=== PATIENT | female | born 1960 | race Caucasian/White ===

== ENCOUNTER → 2019-10-14 11:39 | Outpatient (CLI) | payer BC, SELFPAY ==
--- NOTE | 2019-10-14 12:11 | CR.HP_ITS ---
CR - History & Physical - General Arrival date:: 10/14/19 Arrival time:: 12:00 Date of Referral:: 09/30/19 Date of CR Evaluation:: 10/14/19 Referring Physician: DR. SHIVANI SIDDIQI @ [facility] Primary Diagnosis: HYPERTROPHIC OBSTRUCTIVE CARDIOMYOPATHY - History of Present Cardiac Event Onset Date: Enter Onset Date of cardiac illnesses in Comment field below Interventions with present event:: SEPTAL MYECTOMY PROCEDURE - Medications Home Medications: Ambulatory Orders Medication Instructions Recorded Acetaminophen [Tylenol] 650 mg PO Q6H PRN 10/14/19 Aspirin [Aspir 81] 81 mg PO 10/14/19 Atorvastatin Calcium [Lipitor] 20 mg PO 10/14/19 Calcium Carb/Vitamin D [Os-Cayden 1 tablet PO 10/14/19 500MG + D] Cholecalciferol (Vitamin D3) 5,000 unit PO 10/14/19 [Vitamin D3] Metoprolol Succinate [Kapspargo 25 mg PO 10/14/19 Sprinkle] Multivitamin [One-Daily 1 each PO 10/14/19 Multi-Vitamin] Omeprazole [Prilosec] 20 mg PO DAILY 10/14/19 Polyethylene Glycol 3350 [Miralax] 17 gm PO DAILY 10/14/19 Sennosides/Docusate Sodium 1 each PO 10/14/19 [Senna-S Tablet] - Allergies Allergies/Adverse Reactions: Allergies esomeprazole [From Nexium] Allergy (Verified 10/14/19 12:24) Other REALLY BAD HEADACHES - Sleep Disorder Evaluation Hx of Sleep Apnea: No Do you snore loudly (louder than talking or can be heard through closed doors)?: No Do you often feel tired/ fatigued/ sleepy during daytime?: Yes - A LITTLE BIT BUT NOT ROUTINELY. Has anyone observed you stop breathing during sleep?: No History of Hypertension (for STOP score): Yes STOP Results: Positive Advanced Directives - Advanced Directives Power of Coat Maker: Yes Living Will: Yes Advance Directives Information Provided: No Advance Directives on File: No - NOT ON FILE HERE BUT AT THE [facility] DNR Order?:: No - MOLST See MOLST form: No Past Medical History - Past Medical Illness Medical History: Past Medical History (Last Updated 10/14/19 @ 12:23 by Markell Duarte, [employer]ICKETING AGENT, ADULT PSYCHIATRIST, BS) Acute postoperative pain G89.18 Elevated liver enzymes R74.8 H/O migraine with aura Z86.69 H/O: hysterectomy Z90.710 History of hysterectomy Z90.710 Hyperlipidemia E78.5 Hypertension, essential I10 Hypertrophic obstructive cardiomyopathy (HOCM) I42.1 Mild left ventricular hypertrophy I51.7 Chronic kidney disease (CKD) N18.9 - Past Surgical History Surgical History: Past Surgical History (Last Updated 10/14/19 @ 12:26 by Markell Duarte, [employer]ETING AGENT, ADULT PSYCHIATRIST, BS) H/O breast biopsy Z98.890 H/O colonoscopy Z98.890 History of appendectomy Z90.49 History of cholecystectomy Z90.49 Hx of bilateral breast reduction surgery Z98.890 S/P ventricular septal myectomy Z98.890 Social History - Smoking History Smoking Status: Never smoker Hx Tobacco Use: No Hx Smoking Exposure: No - Alcohol Use Alcohol Usage: No - Substance Abuse Hx Substance Use: No - Occupation Occupation (List type of work in comments):: Unemployed Hours worked per day:: 8 - OCCASIONALLY WILL [employer] 30 MINUTES IN THE AFTERNOON - Hobbies, Recreation, Social Activities Hobbies: Other - GRANDBABIES, BABYSITTING, COOKING & SEWING, INVOLVED AT [employer] WITH [employer] Recreational Activities: I am able to engage in most, but not all activities, I am able to engage in a few activities - NOT BABYSITTING PRESENTLY, NOT LIFTING HEAVY POTS PANS YET. Social Environment - Status Marital Status: - Current Living Arrangements Living Environment:: Spouse - Children How many children do you have?: 3 Do any of your children live nearby?: Yes - 2 DAUGHTER LOCALLY, SON IN [place] - Safety Do you feel safe in your surroundings?: Yes - Assistance Do you need any assistance at home?: NONE Review of Systems - Review of Systems Hints: Right click = Denies (Slash). Left click = Reports ([place]) Review of Present Symptoms: Reports: Operative Discomfort - WHEN DOES HAVE THE POST OPERATIVE PAIN SHE RATES IN ON SCALE OF 1-10 AT A 7., Fatigue, Appetite - Normal, Sleep - Normal. Denies: Shortness of Breath at Rest, Shortness of Breath with Exertion, Dizziness/Lightheadedness, Heart Arrhythmia/Irregularities, Appetite - Special Diet, Sexual Changes - Pain Is Patient Pain Free?: Yes Pain Location: none Pain Level: 7/10 Risk Factor Assessment - Chief Complaint Chief Complaint: PATIENT IS A 59 YR OLD FEMALE PATIENT WHO RPESENTS TO CR TODAY FOLLOWING RECENT SEPTAL MYECTOMY PROCEDURE AT [facility] Jul. THE PATIENT WAS REFERRED TO OUR CR PROGRAM ON 09/30/2019 AFTER BEING RELEASED BY HER SURGEON. - Vital Signs Temperature: 98.5 F Respiratory Rate: 14 Pulse Ox: 95 - 3 - Pulse Pulse Rate: 68 Pulse Rhythm: Regular - Hypertension How long have you been treated?: 8-9 YEARS On medication(s)?: YES Blood Pressure Sitting - Left Arm: 112/64 - Blood Cholesterol/Lipids Total Cholesterol (mg/dL) Goal = less than 200 mg/dL: 0 - NOT AVAILABLE - Diabetes Nutrition Referral for Diabetes: Yes - Obesity Height: 5 ft 10 in Weight:: 209 lb Weight in Pounds: 209.0 lbs Weight Source: Standing Scale Body Mass Index (BMI): 29.9 Nutritional Referral for Obesity: No - Physical Inactivity Physical Inactivity: Reg Exercise 30 min/day - Risk Stratification Risk Guidelines: Lowest Risk: Risk Factor for Smoking, Risk Factor for Dyslipidemia, Risk Factor for Diabetes, Risk Factor for Hypertension, Risk Factor for Sedentary Lifestyle, Risk Factor for Depression, Highest Risk: Risk Factor for Obesity - For Smoking Smoking Risk Guidelines: Smoking Low Risk: None or quit greater than 6 months ago. Smoking Moderate Risk: Smoker or quit 6 months or less ago. Smoking High Risk: Smoker - For Dyslipidemia Dyslipidemia Risk Guidelines: Low Risk: Moderate Risk: High Risk: 15-25% fat 25.1-29% fat >/= 30% fat. <7% sat fat 7-9% sat fat >9% sat fat. <150 mg chol 150-299 mg chol >/= 300 mg chol. LDL <100 LDL 100-129 LDL >/= 130. Chol/HDL ratio <5.0 Chol/HDL ratio 5.0-6.0 Chol/HDL ratio >6.0. Triglycerides <100 Triglycerides 100-149 Triglycerides >/= 150 - For Diabetes Mellitus Diabetes Risk Guidelines: Diabetes Low Risk: HgA1c <6.5% and/or FBG <120. Diabetes Moderate Risk: HgA1c 6.6-7.9% and/or FBG 120-180. Diabetes High Risk: HgA1c >/= 8% and/or FBG >180 - For Obesity/Overweight Obesity/Overweight Risk Guidelines: Obesity Low Risk: BMI <25.0. Obesity Moderate Risk: BMI 25-29.9. Obesity High Risk: BMI >/= 30.0 - For Hypertension Hypertension Risk Guidelines: Hypertension Low Risk: Systolic <120 and Diastolic <80. Hypertension Moderate Risk: Systolic 120-139 and Martina stolic 80-89. Hypertension High Risk: Systolic >/= 140 and Diastolic >/= 90 - For Sedentary Lifestyle Sedentary Lifestyle Risk Guidelines: Sedentary Lifestyle Low Risk: >/= 1,500 kcal/week. Sedentary Lifestyle Moderate Risk: 700-1,499 kcal/week. Sedentary Lifestyle High Risk: < 700 kcal/week - For Depression Depression Risk Guidelines: Depression Low Risk: Not clinically depressed. Depression Moderate Risk: Mildly depressed. Depression High Risk: Clinically depressed Motivation - Motivation to Participate On a scale of 1 to 10, how prepared are you to commit to attending program?: 10 What do you see as barriers to successfully being able to complete the program?: WINTER What do you see as the benefits of succesfully completing the program? In other words, what do you hope to get out of participating in the program?: Strength, overall health, knowing what doing at home is right, and the educ Are there issues you are dealing with that will interfere with completing the program?: still having some post-operative discomfort lifting, but no restrictions Do you have a spouse or signficant other, family or friends who will help support you to complete the program?: Yes
[2019-10-14 12:40] VITALS: BP 112/64; PULSE 68; RESP 14; TEMP 36.9; O2SAT 95; BMI 29.9
--- NOTE | 2019-10-14 12:57 | CR.ITP_ITS ---
General Information - General Information Admitting Diagnosis: S/P SEPTAL MYECTOMY. HOCM (Hypertrophic Obstructive Cardi omyopathy) - Education/Goals Barriers to Learning: None Individual Counseling: Initial Assessment: High Blood Pressure, Overweight/Obesi ty - BMI 29.9% Cardiac Rehabilitation Goals: 1. Maintain the individual as the primary focus of care. 2. To improve the patient's quality of life. 3. Identification of cardi ac risk factors and provide cardiac risk factor management. 4. Enhance the psychosocial status of the patient. 5. Reconditioning enough to allow the patient to resume customary activities. 6. Control symptoms of cardiac disease Scale for measuring improvement of personal goals: Enter appropriate number in Comments. 2 = Unchanged. 3 = Slightly Better. 4 = Moderate Improvement. 5 = Met my Goal Personal Goals: Initial Assessment: Improve knowledge of cardiac disease, Improve muscle strength and endurance, Improve diet and eating habits (eat healthier) - lose some weight, Control risk factors (learn risk factor modification) Exercise - Initial Assessment - Visit Date of Eval: 10/14/19 Session #:: 0 - Starting CR 10/17/2019 - Stages of Change Stages of Change:: Action - Physician Prescribed Exercise Modalities: Treadmill, Airdyne, NuStep Frequency (days/week): 3x/week for 12 weeks [36 sessions] Intensity: 60-80% age predicted maximum heart rate reserve METs - Progression: 0.5-1.0 MET, RPE 11-14 WEEK: 3 Target Heart Rate:: 103-135 - Hypertension Do any of the following apply?: Yes, Medication Resting Blood Pressure:: 112/64 - Intervention Home Exercise/Activity Goal:: Moderate Exercise 30 min/day x 5 days/wk - Education Goals:: Warm-up, RPE HEIDI Scale, S/S, Safe Exercise, Self-Monitoring - Exercise Program Goals Exercise Program Goals: Aerobic Activity >30 min Nutrition - Initial Assessment - Program Goals Nutrition Program Goals: LDL <70. Total Cholesterol <200. HDL >45. Triglycerides <150. HgbA1C <7%. BMI <25 - Visit Date of Assessment:: 10/14/19 - Diabetes Diabetes:: No Insulin: No Non-Insulin Dependent?: No Do you monitor your blood sugar at home?: No - Weight Management Height: 5 ft 10 in Weight:: 209 lb Body Fat %:: 29.9 - Intervention Referral to dietitian:: Yes - patient is interested in hte Why Weight Program Referral to Diabetic Clinic:: No Will attend diet classes:: Yes - Education Gave educational materials for:: Healthy eating Tobacco - Initial Assessment - Program Goals Tobacco Program Goals: Complete smoking cessation. Attend education classes. Improve Knowledge Test score - Stage of Change Stages of Change:: Action - Learning Barriers Learning Barriers: Ready to Learn - Tobacco Use Tobacco Use: Non-smoker Do you use smokeless tobacco?: No - Intervention Smoking Cessation Referral:: No Individual Education/Counseling:: No Education Schedule Given:: Yes - Education Attended class for:: Treating Heart Disease, How The Heart Works, What it means to have Heart Disease, How Coronary Artery Disease is Diagnosed, Heart Procedures, What Heart Medications Do, Risk Factors & Modifications, Living an Active Life, Nutrition, Emotions & Heart Disease, Stress Management & Relaxation, Sleep Disorders & Heart Disease Psychosocial - Initial Assess - Target Goals Target Goals: Assess presence or absence of depression. Using a valid screening tool, maximizes coping skills. Positive support system - Stages of Change Stages of Change:: Action - Psychosocial Test Tool Used:: HANDS Depression Questionnaire - Intervention PS - Interventions: Yes Attend Stress Management Classes, No Referral to Mental Health, No Referral to [facility] Case Management, No Referral to Physician, No Uses Stress Management Skills - Education Gave educational materials for:: Coping techniques, Signs & symptoms of depression, Stress management, Relaxation techniques - Patient/Program Goal Preventative Medication(s):: Aspirin, ELDER inhibitor, Clopidogrel, Beta meng, Statin/lipid - Patient reports taking medications as prescribed - Assistive Devices Assistive Devices:: None Fall Risk Assessed:: Yes Patient Health Questionnaire Initial Assessment 1. Little interest or pleasure in doing things: Not at all 2. Feeling down, depressed, or hopeless: Not at all 3. Trouble falling or staying asleep, or sleeping too much: Not at all 4. Feeling tired or having little energy: Several days 5. Poor appetite or overeating: Not at all 6. Feeling bad about yourself -- or that you are a failure or have let yourself or your family down: Not at all 7. Trouble concentrating on things, such as reading the newspaper or watching television: Not at all 8. Moving or speaking so slowly that other people could have noticed. Or the opposite - being so fidgety or restless that you have been moving around a lot more than usual: Not at all 9. Thoughts that you would be better off , or of hurting yourself in some way: Not at all Total Score: 1 [place]-Q SV Test - Statements CAD is a disease of the arteries in the heart: False Examples of risk factors for heart disease: True Angina is chest pain or discomfort: I Don't Know The benefits of resistance training include: True Eating more meat and dairy products: False Anti-platelet medications such as aspirin are important: I Don't Know The only effective way to manage stress: False An exercise warm-up slowly increases heart rate: True Prepared, processed foods usually have high sodium: True Depression is common after a heart attack: True The statin medications lower cholesterol: True To control blood pressure, lower the amount of sodium: True If someone gets chest discomfort during walking: False Transfats are partially hydrogenated vegetable oils: True Sleep apnea that is not treated increases the risk: False To control cholesterol, one should become a vegetarian: True Someone knows if he/she is exercising at the right level: False Diabetes cannot be prevented with exercise & health eating: False Stress is a large risk for heart attack: True A diet that can help lower blood pressure is rich in: True - Total Score Total Correct Responses: 16 Self-Efficacy Initial Assessment We would like to know how confident you are in doing certain activities. Please select your confidence level for:: Select your confidence level for the following using the scale 1-10 where 1 is not at all confident and 10 is totally confident. Your score is the average of all 6 responses. Fatigue: How confident are you that you can keep the fatigue caused by your disease from interfering with the things you want to do? Select Number: 8 Physical Discomfort or Pain: How confident are you that you can keep the physical discomfort or pain of your disease from interfering with the things you want to do? Select Number: 8 Emotional Distress: How confident are you that you can keep the emotional distress caused by your disease from interfering with the things you want to do? Select Number: 10 Other Symptoms or Health Problems: How confident are you that you can keep other symptoms or health problems from interfering with the things you want to do? Select Number: 8 Different Tasks and Activities: How confident are you that you can do the different tasks and activities needed to manage your health condition so as to reduce your need to see a doctor? Select Number: 9 Medication: How confident are you that you can do things other than just taking medication to reduce how much your illness affects your everyday life? Select Number: 9 Total Score:: 8 Nutrition Survey - Nutrition Survey Instructions Scoring Instructions: Scoring is as follows: Yes = 1 points. No = 0 point. Patient score that is >/=12 is considered to be at potential nutritional risk and could benefit from a referral to a registered dietitian. - Nutrition Survey Initial Have you lost >10 lbs over the past 2 months without trying?: No Are you following a special diet at home for diabetes, low fat, or low salt?: No Are you interested in meeting with a dietitian for help understanding your diet?: Yes Do you eat less than 3 meals a day?: Yes - sometimes Do you eat fatty meats (wilson, sausage, ribs, etc), fried foods, desserts, large amounts of salad dressings, margarine, butter, or cheese most days?: No Do you have food allergies? [Enter types in comment field]: No Do you eat in restaurants more than 3 times a week?: No Do you season food with salt, seasoning salt, or garlic salt?: Yes Do you used canned, boxed, frozen meals, or soups, seasoning packets?: No - Patient is interested in the Why Weight Structured weight loss program. Total Score:: 3
[2019-10-14 13:04] VITALS: BP 112/64
== END ==
PROVIDERS: Family Provider Family Medicine; PCP Family Medicine
DX: I12.9 Hypertensive chronic kidney disease with stage 1 through stage 4 chronic kidney disease, or unspecified chronic kidney disease (principal); N18.9 Chronic kidney disease, unspecified; E78.5 Hyperlipidemia, unspecified; I42.1 Obstructive hypertrophic cardiomyopathy

== ENCOUNTER 2019-10-22 11:30 | Outpatient (RCR) | payer BC, SELFPAY ==
[2019-10-14 12:40] VITALS: BMI 29.9
== END 2019-10-25 23:59 ==
LOC: CR 11:30
PROVIDERS: Family Provider Family Medicine; PCP Family Medicine
DX: I42.1 Obstructive hypertrophic cardiomyopathy (principal)
CPT/HCPCS: 93798

== ENCOUNTER 2019-10-29 11:30 | Outpatient (RCR) | payer BC, SELFPAY ==
[2019-10-14 12:40] VITALS: BMI 29.9
--- NOTE | 2019-11-12 09:25 | PCM.CR.ITP ---
Exercise - 30-day Assessment - Visit Date of Eval: 11/12/19 Session #:: 5 - 10/31/2019 physician placed patient on hold due to pericarditis. - Stages of Change Stages of Change:: Action - Physician Prescribed Exercise Modalities: Treadmill, Airdyne, NuStep Frequency (days/week): 3 Duration (Minutes):: 30-45 Intensity: 60-80% age predicted maximum heart rate reserve METs - Progression: 0.5-1.0 MET, RPE 11-14 WEEK: 5 increase from 3.0 METs Target Heart Rate:: 103-135 max HR 112 - Hypertension Resting Blood Pressure:: 110/62 Peak Exercise Blood Pressure:: 130/60 Medication Changes:: No - Intervention Home Exercise/Activity Goal:: Moderate Exercise 30 min/day x 5 days/wk Nutrition - Initial Assessment - Program Goals Nutrition Program Goals: LDL <70. Total Cholesterol <200. HDL >45. Triglycerides <150. HgbA1C <7%. BMI <25 - Diabetes Do you monitor your blood sugar at home?: No Nutrition - 30-Day Assessment - Program Goals Nutrition Program Goals: LDL <70. Total Cholesterol <200. HDL >45. Triglycerides <150. HgbA1C <7%. BMI <25 - Visit Date of Eval: 11/12/19 - Stages of Change Stages of Change:: Action - Lipids Has the patient seen the dietitian?: Yes - scheduled with NS on 11/07/2019 - Diabetes Diabetes:: No - Weight Management Weight:: 218 lb - increase from 209 - Intervention Referral to dietitian:: No Referral to Diabetic Clinic:: No Will attend diet classes:: Yes - Education Attended class for:: Healthy eating Tobacco - Initial Assessment - Program Goals Tobacco Program Goals: Complete smoking cessation. Attend education classes. Improve Knowledge Test score - Learning Barriers Learning Barriers: Ready to Learn Tobacco - 30-Day Assessment - Program Goals Tobacco Program Goals: Complete smoking cessation. Attend education classes. Improve Knowledge Test score - Stage of Change Stages of Change:: Action - Learning Barriers Learning Barriers: Participates in education - Family Support Do you have family support?: Yes - Tobacco Use Tobacco Use: Non-smoker Do you use smokeless tobacco?: No - Intervention Smoking Cessation Referral:: No Individual Education/Counseling:: No Education Schedule Given:: Yes - Education Attended class for:: Treating Heart Disease, How The Heart Works, What it means to have Heart Disease, How Coronary Artery Disease is Diagnosed Psychosocial - Initial Assess - Target Goals Target Goals: Assess presence or absence of depression. Using a valid screening tool, maximizes coping skills. Positive support system - Psychosocial Test Tool Used:: HANDS Depression Questionnaire - Assistive Devices Fall Risk Assessed:: Yes Psychosocial - 30-Day Assess - Target Goals Target Goals: Assess presence or absence of depression. Using a valid screening tool, maximizes coping skills. Positive support system - Stages of Change Stages of Change:: Action - Psychosocial Test Tool Used:: HANDS Depression Questionnaire - Intervention PS - Interventions: Yes Attend Stress Management Classes, No Referral to Mental Health, No Referral to [facility] Case Management, No Referral to Physician, No Uses Stress Management Skills - Education Attended classes for:: Coping techniques, Signs & symptoms of depression, Stress management, Relaxation techniques - Patient/Program Goal Preventative Medication(s):: Aspirin - patient reports taking medications as prescribed., ELDER inhibitor, Clopidogrel, Beta meng, Statin/lipid - Assistive Devices Assistive Devices:: None Fall Risk Assessed:: Yes Patient Health Questionnaire 30-Day Re-eval Assessment 1. Little interest or pleasure in doing things: Not at all 2. Feeling down, depressed, or hopeless: Not at all 3. Trouble falling or staying asleep, or sleeping too much: Not at all 4. Feeling tired or having little energy: Several days 5. Poor appetite or overeating: Not at all 6. Feeling bad about yourself -- or that you are a failure or have let yourself or your family down: Not at all 7. Trouble concentrating on things, such as reading the newspaper or watching television: Not at all 8. Moving or speaking so slowly that other people could have noticed. Or the opposite - being so fidgety or restless that you have been moving around a lot more than usual: Not at all 9. Thoughts that you would be better off , or of hurting yourself in some way: Not at all How difficult have these problems made it for you to do your work, take care of things at home, or get along with other people?: Not difficult at all Total Score: 1 Self-Efficacy 30-Day Re-eval Assessment We would like to know how confident you are in doing certain activities. Please select your confidence level for:: Select your confidence level for the following using the scale 1-10 where 1 is not at all confident and 10 is totally confident. Your score is the average of all 6 responses. Fatigue: How confident are you that you can keep the fatigue caused by your disease from interfering with the things you want to do? Select Number: 8 Physical Discomfort or Pain: How confident are you that you can keep the physical discomfort or pain of your disease from interfering with the things you want to do? Select Number: 8 Emotional Distress: How confident are you that you can keep the emotional distress caused by your disease from interfering with the things you want to do? Select Number: 10 Other Symptoms or Health Problems: How confident are you that you can keep other symptoms or health problems from interfering with the things you want to do? Select Number: 9 Different Tasks and Activities: How confident are you that you can do the different tasks and activities needed to manage your health condition so as to reduce your need to see a doctor? Select Number: 9 Medication: How confident are you that you can do things other than just taking medication to reduce how much your illness affects your everyday life? Select Number: 10 Total Score:: 9
[2019-11-12 09:30] VITALS: BP 110/62; BP 130/60
== END 2019-11-25 23:59 ==
LOC: CR 11:30
PROVIDERS: Family Provider Family Medicine; PCP Family Medicine
DX: I42.1 Obstructive hypertrophic cardiomyopathy (principal)
CPT/HCPCS: 93798

== ENCOUNTER 2019-11-07 11:41 | Outpatient (RCR) | payer BC, SELFPAY ==
[2019-10-14 12:40] VITALS: BMI 29.9
== END 2019-11-25 23:59 ==
LOC: NS 11:41
PROVIDERS: Family Provider Family Medicine; PCP Family Medicine
DX: Z71.3 Dietary counseling and surveillance (principal); E66.9 Obesity, unspecified; I42.1 Obstructive hypertrophic cardiomyopathy; E78.5 Hyperlipidemia, unspecified; I12.9 Hypertensive chronic kidney disease with stage 1 through stage 4 chronic kidney disease, or unspecified chronic kidney disease; N18.9 Chronic kidney disease, unspecified
CPT/HCPCS: 97802

== ENCOUNTER 2019-11-28 08:18 | Outpatient (RCR) | payer BC, SELFPAY ==
[2019-10-14 12:40] VITALS: BMI 29.9
[2019-11-26 00:56] VITALS: BP 110/62; BP 130/60
== END 2019-12-26 23:59 ==
LOC: CR 08:18
PROVIDERS: Family Provider Family Medicine; PCP Family Medicine
DX: I42.1 Obstructive hypertrophic cardiomyopathy (principal)
CPT/HCPCS: 93798

== ENCOUNTER 2019-11-28 10:27 | Outpatient (RCR) | payer BC, SELFPAY ==
[2019-10-14 12:40] VITALS: BMI 29.9
== END 2019-11-28 23:59 | disposition home or self-care (01) ==
LOC: NS 10:27
PROVIDERS: Family Provider Family Medicine; PCP Family Medicine
DX: Z71.3 Dietary counseling and surveillance (principal); I42.1 Obstructive hypertrophic cardiomyopathy; E78.5 Hyperlipidemia, unspecified; I12.9 Hypertensive chronic kidney disease with stage 1 through stage 4 chronic kidney disease, or unspecified chronic kidney disease; N18.9 Chronic kidney disease, unspecified
CPT/HCPCS: 97803

== ENCOUNTER 2022-08-30 16:11 | Emergency (ER) | payer BC, SELFPAY ==
[2022-08-30 16:11] VITALS: BP 152/86; PULSE 89; RESP 19; TEMP 37.3; O2SAT 95; BMI 31.0
[2022-08-30 16:25] VITALS: O2SAT 95
--- NOTE | 2022-08-30 16:31 | CT_ITS ---
STUDY: CTA CHEST REASON FOR EXAM: Female, 62 years old. Worsening shortness of breath today. Question pulmonary embolus. RADIATION DOSAGE (If Supplied By Facility): CTDIvol = ( 12.39 ) mGy, DLP = ( 508.91 ) mGycm TECHNIQUE: The examination was performed with the intravenous administration of IV 100mL Isovue-370. Post-processing of the angiographic images was performed, with multiplanar reformation and 3D reconstruction. Individualized dose optimization techniques were used for this CT. COMPARISON: None. FINDINGS: Suboptimal opacification of the pulmonary arteries. There is no obvious pulmonary embolism. Tortuosity of the thoracic aorta without aneurysm. There is no demonstrated aortic dissection. Normal heart and pericardium. No coronary artery calcifications. There are calcified lymph nodes in the azygo-esophageal recess and lower right hilum. Normal left clavicle. Normal visualized trachea and bronchi. The lungs are well expanded. There is a 8 mm calcified granuloma medial right lung base. No other mass. Mild dependent changes versus atelectasis noted medial right lung base. Normal pleura. Evidence of median sternotomy. The chest wall is otherwise grossly unremarkable. There are degenerative changes of thoracic spine. The liver appears enlarged. Questions fibrosis. Multiple calcified granulomata are seen in the spleen. CT/CTA Chest W/WO Contrast IMPRESSION: 1. Suboptimal opacification of pulmonary arteries. There is no evidence of central pulmonary embolus. The possibility of smaller emboli in peripheral vessels cannot be entirely ruled out. 2. No aortic dissection or aneurysm. 3. Old granulomatous disease. 4. Atelectasis versus infiltrate in the medial right lung base. 5. Question cirrhotic liver. Electronically Signed: Mark Muller DO at 17:45 EDT Reading Location ID and State: [id number] Tel [phone], Service support ,
--- NOTE | 2022-08-30 16:33 | NURSING ---
NO OLD EKGS
[2022-08-30 16:34] VITALS: O2SAT 93
[2022-08-30 16:40] LABS: Absolute Lymphocyte Count 1.74 X10^3/uL (0.83-4.51); Absolute Neutrophil Count 6.1 X10^3/uL (2.0-7.7); Basophil# 0.06 X10^3/uL; Basophil% 0.7 % (0-1); Eosinophil# 0.32 X10^3/uL; Eosinophils% 3.6 % (0-5); Hematocrit 40.1 % (37-47); Hemoglobin 12.6 g/dL (12.0-15.0); Lymphocyte # 1.74 X10^3/ul (0.83-4.51); Lymphocyte % 19.7 % (19-41); Mean Corp Hgb Conc 31.4 g/dL (32-36); Mean Corpuscular Hgb 28.3 pg (27.0-32.0); Mean Corpuscular Volume 90.1 fL (81-99); Monocyte# 0.64 X10^3/uL; Monocyte% 7.2 % (0-10); NRBC Flagged by Analyzer 0 % (0-5); Neutrophil # 6.07 X10^3/uL (2.7-7.7); Neutrophil % 68.6 % (47-70); Platelet Count 330 K/mm3 (150-450); RBC Distribution Width CV 13.1 % (11.6-14.6); RBC Distribution Width SD 42.8 fl (35.1-43.9); Red Blood Count 4.45 M/mm3 (4.2-5.4); White Blood Count 8.9 K/mm3 (4.4-11.0)
[2022-08-30 16:55] LABS: Anion Gap 5 (5-15); BUN 10 mg/dL (7-18); BUN/Creat Ratio 9.3 RATIO (10-20); Calcium,Total 9.1 mg/dL (8.5-10.1); Chloride 109 mmol/L (98-107); Creatinine, Serum 1.08 mg/dL (0.55-1.02); EST Glomerular Filtration Rate 54 mL/min (>60); Est Glom Filt Rate - Afr Amer 66 mL/min (>60); Estimated Creatinine Clearance 56.91 ml/min; Glucose 156 mg/dL (74-106); Potassium 3.6 mmol/L (3.5-5.1); Sodium Level 141 mmol/L (136-145); Troponin-I HS (w/2H Reflex) 7 pg/mL (3.0-54.0)
[2022-08-30 16:56] LABS: Prothrombin Time (Protime)PT. 13.3 SECONDS (11.7-14.9)
[2022-08-30 16:57] LABS: Partial Thromboplast Time 29.2 Seconds (24.1-36.2)
[2022-08-30 17:01] LABS: Erythrocyte Sedimentation Rate 36 mm/hr (0-30)
[2022-08-30 18:08] VITALS: BP 104/78; PULSE 73; RESP 20; O2SAT 99
[2022-08-30 18:35] LABS: Reflex Troponin-HS? (from REC) Y
[2022-08-30 19:06] LABS: Troponin-I HS 8 pg/mL (3.0-54.0)
--- NOTE | 2022-08-30 19:34 | EDS_ITS ---
HPI History of Present Illness Chief Complaint: Shortness of Breath Informant: patient Onset/Context/Timing Onset: Days Location: L chest Worsened by: positional Narrative Narrative: Patient has a history of pericarditis and surgery for HOCM. She presents today for left-sided chest pain. She contacted her breeder hen service technician in the office told her to come to the ED. Denies any history of coronary disease. Denies any history of DVT or PE. Denies any history of aortic disease. Denies fever or sputum. Denies trauma. Denies abdominal pain, GI symptoms. Denies skin changes. She does have an upper and lower endoscopy scheduled for September 04 for screening purposes. [facility] Medical History Acute postoperative pain Chronic kidney disease (CKD) Elevated liver enzymes H/O migraine with aura Hyperlipidemia Hypertension, essential Hypertrophic obstructive cardiomyopathy (HOCM) Mild left ventricular hypertrophy Home Medications acetaminophen 325 mg tablet 650 mg PO Q6H PRN Pain Or Fever 10/14/19 [History Last Taken Unknown] aspirin 81 mg tablet,delayed release 81 mg PO 10/14/19 [History Last Taken Unknown] atorvastatin 20 mg tablet 20 mg PO 10/14/19 [History Last Taken Unknown] calcium carbonate 500 mg-vitamin D3 5 mcg (200 unit) tablet 1 tab PO 10/14/19 [History Last Taken Unknown] cholecalciferol (vitamin D3) 125 mcg (5,000 unit) capsule 5,000 unit PO 10/14/19 [History Last Taken Unknown] metoprolol succinate 25 mg capsule sprinkle, ext. release 24 hr 25 mg PO 10/14/19 [History Last Taken Unknown] multivitamin 1 ea PO 10/14/19 [History Last Taken Unknown] omeprazole 20 mg capsule,delayed release 20 mg PO DAILY 10/14/19 [History Last Taken Unknown] polyethylene glycol 3350 17 gram oral powder packet 17 gm PO DAILY 10/14/19 [History Last Taken Unknown] sennosides 8.6 mg-docusate sodium 50 mg tablet 1 ea PO 10/14/19 [History Last Taken Unknown] Allergy/AdvReac Type Severity Reaction Status Date / Time esomeprazole [From Nexium] Allergy Other Verified 08/30/22 16:11 Surgical History H/O breast biopsy H/O colonoscopy H/O: hysterectomy History of appendectomy History of cholecystectomy History of hysterectomy Hx of bilateral breast reduction surgery S/P ventricular septal myectomy Social History Smoking Status: Never smoker ROS ROS ED Constitutional Constitutional ED: Denies chills or fever(s) Eyes Eyes: Denies blurry vision ENT ENT ED: Denies ear pain Cardiovascular Cardiovascular: Reports chest pain Respiratory/Chest Respiratory/Chest: Denies cough or dyspnea Gastrointestinal Gastrointestinal: Denies abdominal pain, diarrhea, nausea or vomiting Genitourinary Genitourinary ED: Denies dysuria Musculoskeletal Musculoskeletal: Denies arthralgias Integumentary Denies abscess Neurologic Neurologic: Denies headache(s) Psychiatric Psychiatric: Denies anxiety Endocrine Endocrinology: Denies cold intolerance Allergic/Immunologic Allergic/Immunologic ED: Denies mouth swelling EXAM Physical Exam Const Vital Signs: 08/30/22 16:11 08/30/22 16:25 08/30/22 16:34 Temperature 99.1 F Temperature Source Temporal Pulse Rate 89 Respiratory Rate 19 H Respiratory Effort Short of Breath Respiratory Depth Normal Respiratory Pattern Tachypnea Blood Pressure 152/86 H Blood Pressure Mean 108 Pulse Ox 95 93 Oxygen Delivery Method Room Air Room Air Room Air 08/30/22 18:08 Temperature Temperature Source Pulse Rate 73 Respiratory Rate 20 H Respiratory Effort Respiratory Depth Respiratory Pattern Blood Pressure 104/78 Blood Pressure Mean 86 Pulse Ox 99 Oxygen Delivery Method Room Air Positive well nourished and well developed General Appearance ED: well developed Eyes PERRL Neck no lymphadenopathy Resp normal respiratory effort and clear to auscultation bilaterally Cardio regular rate and regular rhythm GI normal to inspection, nondistended, normoactive bowel sounds and non-tender Extremity normal to inspection Neuro oriented x3 and CN's II-XII intact bilaterally Psych mental status grossly normal Skin no rashes or lesions noted MDM MDM MDM Narrative Medical decision making narrative: EKG showed sinus rhythm at a rate of 87 with a left bundle branch block pattern. I do not have an old EKG for comparison. This limits interpretation, but I do not appreciate anything that meets infarction criteria. I later spoke with Dr. Vasquez who confirmed that she has a history of a left bundle. CT showed no evidence of central pulmonary embolism, no dissection or aneurysm, old granulomatous disease, right side atelectasis versus an infiltrate, and a possible cirrhotic liver. Patient's records indicated that she had a history of elevated liver enzymes. Dr. Vasquez said that they had ordered liver testing but she never followed up. He requested a hepatic panel and an acute hepatitis panel and he will follow-up with those results in the office. Patient will call tomorrow for an appointment. Her labs otherwise were fairly unremarkable. 2 sets of troponin were normal. She had elevated inflammatory markers but these are nonspecific. They may be related to her liver process. I do not believe this is causing her chest pain, and I do believe it is appropriate outpatient follow-up at this time. She will return for any new or worsening issues. Regarding her scheduled endoscopies in the 5 days, she was advised to discuss her symptoms and her medical history with her endoscopist before proceeding. She should call tomorrow. Impression #1 left side chest pain, nonspecific Impression #2 cirrhosis Impression #3 elevated inflammatory markers Impression #4 history of left bundle branch block pattern Disposition is discharged home in stable condition. Lab Data Attestation: I reviewed the patient's lab results. Labs: Laboratory Results - last 24 hr 08/30/22 08/30/22 08/30/22 15:46 15:46 15:46 WBC 8.9 RBC 4.45 Hgb 12.6 Hct 40.1 MCV 90.1 MCH 28.3 MCHC 31.4 L RDW Std Deviation 42.8 RDW Coeff of Mellissa 13.1 Plt Count 330 MPV 10.0 Immature Gran % (Auto) 0.200 Neut % (Auto) 68.6 Lymph % (Auto) 19.7 [place] % (Auto) 7.2 Eos % (Auto) 3.6 Baso % (Auto) 0.7 Absolute Neuts (auto) 6.1 Absolute Lymphs (auto) 1.74 Nucleated RBC % 0 ESR 36 H PT 13.3 INR 1.0 APTT 29.2 Sodium 141 Potassium 3.6 Chloride 109 H Carbon Dioxide 27.0 Anion Gap 5 BUN 10 Creatinine 1.08 H Estim Creat Clear Calc 56.91 Est GFR (MDRD) Af Amer 66 Est GFR (MDRD) Non-Af 54 L BUN/Creatinine Ratio 9.3 L Glucose 156 H Calcium 9.1 Troponin I High Sens 7 C-React Prot Ext Range 67.50 H 08/30/22 18:35 WBC RBC Hgb Hct MCV MCH MCHC RDW Std Deviation RDW Coeff of Mellissa Plt Count MPV Immature Gran % (Auto) Neut % (Auto) Lymph % (Auto) [place]ift % (Auto) Eos % (Auto) Baso % (Auto) Absolute Neuts (auto) Absolute Lymphs (auto) Nucleated RBC % ESR PT INR APTT Sodium Potassium Chloride Carbon Dioxide Anion Gap BUN Creatinine Estim Creat Clear Calc Est GFR (MDRD) Af Amer Est GFR (MDRD) Non-Af BUN/Creatinine Ratio Glucose Calcium Troponin I High Sens 8 C-React Prot Ext Range Radiography Diagnostic Testing: Clinical Impression(s) from Imaging Studies Chest CTA 08/30/22 16:31 IMPRESSION: 1. Suboptimal opacification of pulmonary arteries. There is no evidence of central pulmonary embolus. The possibility of smaller emboli in peripheral vessels cannot be entirely ruled out. 2. No aortic dissection or aneurysm. 3. Old granulomatous disease. 4. Atelectasis versus infiltrate in the medial right lung base. 5. Question cirrhotic liver. Electronically Signed: Mark Muller DO at 17:45 EDT Reading Location ID and State: [address] [place] [address] Tel [phone], Service support , Discharge Plan Triage Chief Complaint: Shortness of Breath ED Provider: Vasyl Ness Dx/Rx/DC Orders Instructions: ED Chest Pain, Uncertain Cause Prescriptions: No Action multivitamin 1 EACH tablet 1 ea PO acetaminophen 325 MG tablet 650 mg PO Q6H PRN (Reason: Pain Or Fever) atorvastatin 20 MG tablet 20 mg PO polyethylene glycol 3350 17 GM packet 17 gm PO DAILY sennosides-docusate sodium 1 EACH tablet 1 ea PO aspirin 81 MG tablet,delayed release (DR/EC) 81 mg PO omeprazole 20 MG capsule 20 mg PO DAILY cholecalciferol (vitamin D3) 5,000 UNIT capsule 5,000 unit PO calcium carbonate-vitamin D3 1 TABLET tablet 1 tab PO metoprolol succinate 25 MG capsule,sprinkle,ER 24hr 25 mg PO Primary Care Provider: Eusebio Rosas Referrals: Eusebio Rosas MD [Primary Care Provider] - Activity Restrictions/Additional Instructions: Call your breeder hen service technician in the morning for follow up. Discuss your symptoms with your endoscopist before undergoing colonoscopy. Disposition Disposition: Home, Self Care
[2022-08-30 20:03] VITALS: BP 135/82; PULSE 79; RESP 25; O2SAT 94
[2022-08-30 20:48] LABS: AST(SGOT) 22 U/L (15-37); Alanine Aminotransfer ALT/SGPT 31 U/L (13-56); Albumin, Serum 3.2 g/dL (3.2-5.0); Alkaline Phosphatase 117 U/L (45-117); Bilirubin, Direct 0.11 mg/dL (0.00-0.30); Globulin 3.7 g/dL (2.2-4.2); Protein, Total 6.9 g/dL (6.4-8.2)
[2022-09-01 05:07] LABS: HEPATITIS B SURFACE AG Negative (Negative); Hep C Antibodies <0.1 s/co ratio (0.0-0.9); Hepatitis A IgM Antibody Negative (Negative); Hepatitis B Core AB IgM Negative (Negative)
== END 2022-08-30 20:04 | disposition home or self-care (01) ==
PROVIDERS: Emergency Provider Emergency Medicine; PCP Family Medicine; Visit Provider Emergency Medicine
DX: R07.9 Chest pain, unspecified (principal); K74.60 Unspecified cirrhosis of liver; I44.7 Left bundle-branch block, unspecified; I10 Essential (primary) hypertension; E78.5 Hyperlipidemia, unspecified; Z79.82 Long term (current) use of aspirin; Z79.899 Other long term (current) drug therapy
CPT/HCPCS: 71275; 80048; 80074; 80076; 84484; 85025; 85610; 85652; 85730; 86140; 93005; 99284; Q9967; A4216

== ENCOUNTER 2024-07-28 11:28 | Emergency (ER) | payer MEDICARE, SELFPAY ==
[2024-07-28 11:29] VITALS: BP 132/81; PULSE 66; RESP 16; TEMP 37.2; O2SAT 95; BMI 28.5
--- NOTE | 2024-07-28 11:54 | EX.ED.DYSGE1 ---
HPI History of Present Illness Chief Complaint: Fatigue Informant: patient and spouse/S.O. Narrative Narrative: 63-year-old female with 2-3 days of feeling poorly with headache, chills, cough, myalgias, lightheadedness and dry mouth despite drinking fluids. She also feels like she is having some tingling in both of her cheeks at the same time today. She denies sinus pain/pressure or nasal congestion or sore throat. Svci-asl-cojlcwo treatments she has tried include Delsym for the cough. She denies any dyspnea or chest discomfort or GI symptoms except for some nausea on the first day. She has been around multiple grandkids who have had respiratory illnesses recently but unknown etiology. She denies travel out of the country. She does not know if they have been tested for any specific it. She was seen at urgent care today but they sent her to the ER for unclear reasons. [facility] Medical History Hypertension, essential H/O migraine with aura Mild left ventricular hypertrophy Elevated liver enzymes Chronic kidney disease (CKD) Hyperlipidemia Acute postoperative pain Hypertrophic obstructive cardiomyopathy (HOCM) Home Medications ?Medication ?Instructions ?Recorded ?Last Taken ?Type acetaminophen 325 mg tablet 650 mg PO Q6H PRN Pain Or Fever 10/14/19 Unknown History aspirin 81 mg tablet,delayed 81 mg PO 10/14/19 Unknown History release atorvastatin 20 mg tablet 20 mg PO 10/14/19 Unknown History calcium carbonate 500 mg-vitamin 1 tab PO 10/14/19 Unknown History D3 5 mcg (200 unit) tablet cholecalciferol (vitamin D3) 125 5,000 unit PO 10/14/19 Unknown History mcg (5,000 unit) capsule metoprolol succinate 25 mg capsule 25 mg PO 10/14/19 Unknown History sprinkle, ext. release 24 hr multivitamin 1 ea PO 10/14/19 Unknown History omeprazole 20 mg capsule,delayed 20 mg PO DAILY 10/14/19 Unknown History release polyethylene glycol 3350 17 gram 17 gm PO DAILY 10/14/19 Unknown History oral powder packet sennosides 8.6 mg-docusate sodium 1 ea PO 10/14/19 Unknown History 50 mg tablet Allergy/AdvReac Type Severity Reaction Status Date / Time esomeprazole (From Nexium) Allergy Other Verified 07/28/24 11:29 Surgical History History of hysterectomy H/O: hysterectomy Hx of bilateral breast reduction surgery History of cholecystectomy H/O colonoscopy H/O breast biopsy History of appendectomy S/P ventricular septal myectomy Social History Smoking Status: Never smoker ROS ROS ED Constitutional Constitutional ED: Reports chills and fatigue; Denies fever(s) ENT ENT ED: Reports sore throat; Denies ear pain, nasal congestion or rhinorrhea Cardiovascular Cardiovascular: Denies chest pain or palpitations Respiratory/Chest Respiratory/Chest: Reports cough; Denies dyspnea Gastrointestinal Gastrointestinal: Denies abdominal pain, diarrhea, nausea or vomiting Genitourinary Genitourinary ED: Denies dysuria or hematuria Musculoskeletal Musculoskeletal: Reports myalgias; Denies neck pain Integumentary Denies abscess or rash Neurologic Neurologic: Reports headache(s); Denies paresthesias or weakness Psychiatric Psychiatric: Denies depression or suicidal thoughts Endocrine Endocrinology: Denies polydipsia or polyuria EXAM Physical Exam Const Vital Signs: 07/28/24 11:29 07/28/24 11:29 07/28/24 13:29 Temperature 99 F Temperature Source Temporal Pulse Rate 66 74 Respiratory Rate 16 16 Respiratory Effort Normal Non-Labored Respiratory Pattern Normal Blood Pressure 132/81 H 128/86 H Blood Pressure Mean 98 100 Pulse Ox 95 98 Oxygen Delivery Method Room Air Room Air Positive well nourished and well developed General Appearance ED: well developed and NAD HEENT Reports moist mucous membranes HEENT Narrative: No sinus tenderness. No nasal turbinate edema. No purulent discharge. normocephalic and atraumatic Throat: Negative for posterior oropharynx abnormal Eyes PERRL and EOMs intact bilaterally Neck no lymphadenopathy, supple and no meningeal signs Resp normal respiratory effort and clear to auscultation bilaterally Cardio no murmurs Rate: regular rate Rhythm: regular rhythm Neuro oriented x3, CN's II-XII intact bilaterally and no sensory deficits noted Sensorium / Orientation: alert Motor Exam: strength 5/5 throughout Skin Lesions: no lesions Rashes: no rashes MDM MDM MDM Narrative Medical decision making narrative: Clinically, patient has a viral syndrome. I did an x-ray 2 views my interpretation showed no acute pneumonia but there is an abnormality low in the right lower lobe or right middle lobe; this was noted by the radiologist as well and compared with an old CT scan, it is the same area, so likely some type of scar tissue or atelectasis and not likely acute pneumonia which I agree with. Her lungs are clear and oxygenation is excellent. RSV/COVID/influenza swab negative and her blood tests are normal showing no atypical lymphocytosis to suggest mononucleosis. Patient likely has a different viral etiology. Do not think she needs more emergent testing here. Her exam is benign, she was given IV fluids and Toradol which helped some, her vital signs are normal, and she does not improve within the week outpatient follow-up recommended. She is comfortable with that plan. Lab Data Attestation: I reviewed the patient's lab results. Labs: Laboratory Results - last 24 hr 07/28/24 12:19 WBC 7.1 RBC 4.56 Hgb 12.8 Hct 40.2 MCV 88.2 MCH 28.1 MCHC 31.8 L RDW Std Deviation 41.7 RDW Coeff of Mellissa 12.9 Plt Count 266 MPV 10.2 Immature Gran % (Auto) 0.300 Neut % (Auto) 66.6 Lymph % (Auto) 19.6 [place] % (Auto) 12.3 H Eos % (Auto) 0.6 Baso % (Auto) 0.6 Absolute Neuts (auto) 4.7 Absolute Lymphs (auto) 1.39 Nucleated RBC % 0 Sodium 136 Potassium 3.6 Chloride 101 Carbon Dioxide 26.0 Anion Gap 9 BUN 13 Creatinine 1.04 H Estim Creat Clear Calc 65.74 Est GFR (MDRD) Af Amer 68 Est GFR (MDRD) Non-Af 56 L BUN/Creatinine Ratio 12.5 Glucose 105 Calcium 9.3 Radiography Diagnostic Testing: Clinical Impression(s) from Imaging Studies Chest X-Ray 07/28/24 12:30 IMPRESSION: Apparent pulmonary hyperinflation perhaps secondary to COPD. Right posterior basilar pulmonary opacity may be atelectasis or scarring rather than pneumonia. This would correlate with the prior CT. Electronically Signed: Yossi Oviedo DO at 12:50 EDT , Discharge Plan Triage Chief Complaint: Fatigue ED Provider: Arthur Ramos Dx/Rx/DC Orders Clinical Impression: Acute viral syndrome Instructions: ED Viral Syndrome (Adult) Prescriptions: No Action multivitamin 1 EACH tablet 1 ea PO acetaminophen 325 MG tablet 650 mg PO Q6H PRN (Reason: Pain Or Fever) atorvastatin 20 MG tablet 20 mg PO polyethylene glycol 3350 17 GM packet 17 gm PO DAILY sennosides-docusate sodium 1 EACH tablet 1 ea PO aspirin 81 MG tablet,delayed release (DR/EC) 81 mg PO omeprazole 20 MG capsule 20 mg PO DAILY cholecalciferol (vitamin D3) 5,000 UNIT capsule 5,000 unit PO calcium carbonate-vitamin D3 1 TABLET tablet 1 tab PO metoprolol succinate 25 MG capsule,sprinkle,ER 24hr 25 mg PO Primary Care Provider: Eusebio Rosas Referrals: Eusebio Rosas MD [Primary Care Provider] - 1 Week if not improving Print Language: Mohawk Disposition Disposition: Home, Self Care
[2024-07-28] MEDS: 0.9% Normal Saline (1000mL) 1,000 ML 999 ML IV (12:17)
[2024-07-28] MEDS: Ketorolac 30 MG/ML Syringe IV (12:17)
--- NOTE | 2024-07-28 12:30 | RAD_ITS ---
EXAM: XR CHEST, 2 VIEWS CLINICAL INDICATION: cough, fatigue TECHNIQUE: Frontal and lateral views of the chest. COMPARISON: CTA chest, 08/30/2022 FINDINGS: LUNGS AND PLEURAL SPACES: Apparent pulmonary hyperinflation perhaps secondary to COPD. Right posterior basilar pulmonary opacity may be atelectasis or scarring rather than pneumonia. No pneumothorax. No effusion. HEART: No significant abnormality. Cardiac silhouette not enlarged. MEDIASTINUM: Central airways and mediastinal contour are unremarkable. BONES/JOINTS: Median sternotomy. No acute fracture. SOFT TISSUES: No significant abnormality. RAD/Chest PA and Lateral IMPRESSION: Apparent pulmonary hyperinflation perhaps secondary to COPD. Right posterior basilar pulmonary opacity may be atelectasis or scarring rather than pneumonia. This would correlate with the prior CT. Electronically Signed: Yossi Oviedo DO at 12:50 EDT ,
[2024-07-28 12:38] LABS: Anion Gap 9 (5-15); BUN 13 mg/dL (7-18); BUN/Creat Ratio 12.5 RATIO (10-20); Calcium,Total 9.3 mg/dL (8.5-10.1); Chloride 101 mmol/L (98-107); Creatinine, Serum 1.04 mg/dL (0.55-1.02); EST Glomerular Filtration Rate 56 mL/min (>60); Est Glom Filt Rate - Afr Amer 68 mL/min (>60); Estimated Creatinine Clearance 65.74 ml/min; Glucose 105 mg/dL (74-106); Potassium 3.6 mmol/L (3.5-5.1); Sodium Level 136 mmol/L (136-145)
[2024-07-28 12:40] LABS: Absolute Lymphocyte Count 1.39 X10^3/uL (0.83-4.51); Absolute Neutrophil Count 4.7 X10^3/uL (2.0-7.7); Basophil# 0.04 X10^3/uL; Basophil% 0.6 % (0-1); Eosinophil# 0.04 X10^3/uL; Eosinophils% 0.6 % (0-5); Hematocrit 40.2 % (37-47); Hemoglobin 12.8 g/dL (12.0-15.0); Lymphocyte # 1.39 X10^3/ul (0.83-4.51); Lymphocyte % 19.6 % (19-41); Mean Corp Hgb Conc 31.8 g/dL (32-36); Mean Corpuscular Hgb 28.1 pg (27.0-32.0); Mean Corpuscular Volume 88.2 fL (81-99); Mean Platelet Vol. 10.2 fl (6.2-12.0); Monocyte# 0.87 X10^3/uL; Monocyte% 12.3 % (0-10); NRBC Flagged by Analyzer 0 % (0-5); Neutrophil # 4.72 X10^3/uL (2.7-7.7); Neutrophil % 66.6 % (47-70); Platelet Count 266 K/mm3 (150-450); RBC Distribution Width CV 12.9 % (11.6-14.6); RBC Distribution Width SD 41.7 fl (35.1-43.9); Red Blood Count 4.56 M/mm3 (4.2-5.4); White Blood Count 7.1 K/mm3 (4.4-11.0)
[2024-07-28 13:29] VITALS: BP 128/86; PULSE 74; RESP 16; O2SAT 98
[2024-07-28 14:25] VITALS: BP 126/88; PULSE 76; RESP 16; TEMP 36.6; O2SAT 99
== END 2024-07-28 14:26 | disposition home or self-care (01) ==
PROVIDERS: Emergency Provider Emergency Medicine; PCP Family Medicine; Visit Provider Emergency Medicine
DX: B34.9 Viral infection, unspecified (principal); I12.9 Hypertensive chronic kidney disease with stage 1 through stage 4 chronic kidney disease, or unspecified chronic kidney disease; N18.9 Chronic kidney disease, unspecified; Z79.82 Long term (current) use of aspirin; Z79.899 Other long term (current) drug therapy
CPT/HCPCS: 71046; 80048; 85025; 87631; 96361; 96374; 99283

== ENCOUNTER 2024-12-29 12:59 | Emergency (ER) | payer MEDICARE, SELFPAY ==
[2024-12-29 13:00] VITALS: BP 134/85; PULSE 66; RESP 15; TEMP 36.7; O2SAT 98; BMI 29.4
[2024-12-29 13:04] VITALS: BP 134/85; PULSE 66; RESP 15; TEMP 36.7; O2SAT 98
--- NOTE | 2024-12-29 13:19 | CT_ITS ---
PROCEDURE: ABDOMEN/PELVIS W IV CONT ONLY REASON FOR EXAM: 4 day history of vomiting and intermittent left-sided abdominal pain. Elevated liver enzymes. 100 cc of Isovue-300 was injected intravenously. TECHNIQUE: Abdomen and pelvis CT with intravenous contrast. IV CONTRAST: COMPARISON: None. FINDINGS: Lung bases: Small right pleural effusion with right basilar atelectasis. Liver: Diffuse fatty infiltration. Gallbladder: Surgically absent. Spleen: Scattered calcified granulomas. Pancreas: Unremarkable. Adrenals: Unremarkable. Kidneys: Mild left hydronephrosis due to a 3 mm calculus in the proximal portion of the left ureter. Left perinephric stranding. Bladder: Unremarkable. Reproductive Organs: Prior hysterectomy. Adnexal regions are unremarkable. Bowel: Unremarkable. Appendix: Status post appendectomy. Lymph nodes: No suspicious lymph node enlargement. Vasculature: Major vascular structures are unremarkable. Peritoneum / Retroperitoneum: No ascites. No free air. Bones: Unremarkable. CT/Abdomen/Pelvis W IV Cont ONLY IMPRESSION: 3 mm calculus in the proximal portion of the left ureter causing mild degree of left hydronephrosis and proximal left hydroureter. Fatty infiltration of the liver. One or more dose reduction techniques were used (e.g., Automated exposure contr ol, adjustment of the mA and/or kV according to patient size, use of iterative reconstruction technique). Reading Location: [place] [address]
--- NOTE | 2024-12-29 13:20 | ED.VIS.GI ---
HPI HPI - GI History of Present Illness Chief Complaint: Abd Pain Informant: patient Abdominal Pain/Flank Pain Onset: Days Context: Gradual Onset Timing: Intermittent Quality: Sharp and Stabbing (Left flank pain.) Location: Left Flank Current Severity: Gone Maximum Severity: Moderate Worsened by: Nothing Relieved by: Nothing Nausea/Vomiting/Emesis GI Symptom: Positive for Nausea, Vomiting and - (Nausea and vomiting on has not thrown up since that time.) Onset: Days Severity: Mild Diarrhea/Melena/Hematochezia GI Symptom: Positive for Diarrhea (Loose stools.) Onset: Days Stool Quality: Positive for Loose Severity: Mild Associated Symptoms Associated Symptoms: Negative for Dysuria, Frequency, Hematuria or Urgency Narrative Narrative: 64-year-old female history of cardiac surgery due to hypertrophic cardiomyopathy, cholecystectomy, appendectomy hysterectomy. Because on she had nausea and vomiting several times. Developed left flank pain. She initially thought she might of pulled a muscle in her back. But she has had intermittent flank pain 2-4 times a day the last several days progressively getting worse and longer each time. No history of kidney stone. No dysuria. She has had some nausea but no vomiting last few days. She has loose stools. No fever. Currently she is symptom-free and pain-free. Prior similar symptoms: No Recent Illness/Hospitalization: No PFSH PFSH Medical History Hypertension, essential H/O migraine with aura Mild left ventricular hypertrophy Elevated liver enzymes Chronic kidney disease (CKD) Hyperlipidemia Acute postoperative pain Hypertrophic obstructive cardiomyopathy (HOCM) Home Medications ?Medication ?Instructions ?Recorded ?Last Taken ?Type acetaminophen 325 mg tablet 650 mg PO Q6H PRN Pain Or Fever 10/14/19 Unknown History aspirin 81 mg tablet,delayed 81 mg PO 10/14/19 Unknown History release atorvastatin 20 mg tablet 20 mg PO 10/14/19 Unknown History calcium 500 mg (as 1 tab PO 10/14/19 Unknown History carbonate)-vitamin D3 5 mcg (200 unit) tablet cholecalciferol (vitamin D3) 125 5,000 unit PO 10/14/19 Unknown History mcg (5,000 unit) capsule metoprolol succinate 25 mg capsule 25 mg PO 10/14/19 Unknown History sprinkle, ext. release 24 hr multivitamin 1 ea PO 10/14/19 Unknown History omeprazole 20 mg capsule,delayed 20 mg PO DAILY 10/14/19 Unknown History release polyethylene glycol 3350 17 gram 17 gm PO DAILY 10/14/19 Unknown History oral powder packet sennosides 8.6 mg-docusate sodium 1 ea PO 10/14/19 Unknown History 50 mg tablet hydrocodone 5 mg-acetaminophen 300 1 tab PO Q4H PRN pain 3 days #12 12/29/24 Unknown Rx mg tablet tabs Allergy/AdvReac Type Severity Reaction Status Date / Time esomeprazole (From Nexium) Allergy Other Verified 12/29/24 13:03 Surgical History History of hysterectomy H/O: hysterectomy Hx of bilateral breast reduction surgery History of cholecystectomy H/O colonoscopy H/O breast biopsy History of appendectomy S/P ventricular septal myectomy Social History Smoking Status: Never smoker ROS ROS ED ROS Narrative Nausea and vomiting. Diarrhea. Left flank pain. Constitutional Constitutional ED: Denies chills or fever(s) ENT ENT ED: Denies ear pain Cardiovascular Cardiovascular: Denies chest pain Respiratory/Chest Respiratory/Chest: Denies cough or dyspnea Gastrointestinal Gastrointestinal: Reports abdominal pain, diarrhea, nausea and vomiting; Denies constipation or melena Genitourinary Genitourinary ED: Denies dysuria or hematuria Musculoskeletal Musculoskeletal: Denies arthralgias or back pain Integumentary Denies abscess or Abrasions Neurologic Neurologic: Denies headache(s) Psychiatric Psychiatric: Denies anxiety or depression Endocrine Endocrinology: Denies polydipsia Hematologic/Lymphatic Hematologic/Lymphatic: Denies easy bleeding or easy bruising Allergic/Immunologic Allergic/Immunologic ED: Denies mouth swelling, tongue swelling or urticaria EXAM Physical Exam Narrative Exam Narrative: Well-appearing 64-year-old female. Vital signs are stable afebrile. She does not look septic toxic or any distress. H EENT exam pupils are round reactive light. Extra motions are intact. No facial droop. Moist mucous membranes. Neck nontender no lymphadenopathy. Lungs clear to auscultation bilaterally. Heart regular rate and rhythm rate about 65 no murmur. Chest wall ribs nontender. Abdomen is soft, nontender, nondistended, normal bowel sounds without apparent ill signs. No localizing tenderness. No hernia or mass. No obstruction. No pulsatile mass. Back no reproducible pain or tenderness. Normal in appearance. Moving all 4 extremities. Calves are nontender without edema or cords. Neurologically she is awake and alert. No focal motor deficits. Answering questions and following commands. Const Vital Signs: 12/29/24 13:00 12/29/24 13:04 12/29/24 15:00 Temperature 98.1 F 98.1 F Temperature Source Temporal Temporal Pulse Rate 66 66 71 Respiratory Rate 15 15 19 H Blood Pressure 134/85 H 134/85 H 130/74 H Blood Pressure Mean 101 101 92 Pulse Ox 98 98 Oxygen Delivery Method Room Air Room Air Positive well nourished and well developed; Negative for cachectic, contractures or unkempt General Appearance ED: well developed and NAD; Negative for unkempt, cachectic, contractures or pallor Nutritional Appearance: Negative for cachectic HEENT Reports moist mucous membranes normocephalic and atraumatic; Negative for trauma or tenderness Eyes PERRL and EOMs intact bilaterally General Eye ED: Negative for pale conjunctiva or scleral icterus Neck no lymphadenopathy, supple and no JVD General: Negative for tenderness Carotids: Negative for other Resp normal respiratory effort and clear to auscultation bilaterally Effort and Inspection: Negative for respiratory distress Auscultation: Negative for rales, rhonchi, wheezes or diminished lung sounds Cardio regular rate, regular rhythm, S1 normal heart sound, S2 normal heart sound and no murmurs Rate: Negative for bradycardia or tachycardic Rhythm: Negative for abnormal rhythm GI non-tender, non-distended and no masses Inspection: Negative for abdominal distention Auscultation: normoactive bowel sounds Palpation: soft; Negative for tender, guarding, hernia, mass, pulsatile mass or rebound tenderness present Back/Spine no CVA tenderness General Back: Negative for CVA tenderness Cervical Spine: Negative for cervical spine tenderness Thoracic Spine / Upper Back: Negative for thoracic spinal tenderness Lumbar Spine / Lower Back: Negative for lumbar spinal tenderness Coccyx: Negative for other Extremity full ROM General Extremety ED: Negative for edema, tenderness or other findings General Extremity: Negative for edema or other findings Neuro CN's II-XII intact bilaterally and moves all extremities Sensorium / Orientation: alert, oriented to person, oriented to place and oriented to time; Negative for orientation impaired, confused, lethargic or stuporous Motor Exam: strength 5/5 throughout Psych mental status grossly normal and thought process normal Appearance: Negative for unkempt Attitude: No agitated Mood & Affect: Negative for depressed, anxious or tearful Skin no wounds General Skin Exam: Negative for jaundice or pallor Lesions: no lesions Rashes: no rashes Trauma: Negative for abrasion MDM MDM MDM Narrative Medical decision making narrative: 64-year-old female with intermittent left flank pain with nausea and vomiting. Silvestre currently is benign. Currently she is symptom-free. She does not currently need anything for pain or nausea because she did not have the symptoms. CAT scan labs being obtained. Repeat exam patient is doing well at 3:25 PM. We went over her test results. She understands she has a kidney stone. Should pass this 3 mm. Motrin and limited Vicodin for pain. Plenty of fluids. Return if intractable pain, vomiting or fever. Follow-up with urology as needed. History & Record Review Discussion w/independent historian: Patient Additional record(s) reviewed:: Prior inpatient record, Prior outpatient record, Prior ED visit and Prior labs Lab Data Attestation: I reviewed the patient's lab results. Lab results narrative: CBC normal. White count of 7. H&H 13 and 41. Platelets 223. Chemistries show gap of 4. BUN of 14 creatinine 1.1. Glucose 98. Liver enzymes normal. Lipase normal at 23. Urinalysis shows 150 occult blood. No nitrates. 10-25 patient-white cells. No red cells. 5-10 epithelial cells was contaminated. No bacteria. Labs: Laboratory Results - last 24 hr 12/29/24 12/29/24 13:47 14:03 WBC 7.9 RBC 4.63 Hgb 13.3 Hct 41.5 MCV 89.6 MCH 28.7 MCHC 32.0 RDW Std Deviation 42.5 RDW Coeff of Mellissa 13.1 Plt Count 223 MPV 9.8 Immature Gran % (Auto) 0.400 Neut % (Auto) 76.1 H Lymph % (Auto) 15.5 L Braxton % (Auto) 6.1 Eos % (Auto) 1.5 Baso % (Auto) 0.4 Absolute Neuts (auto) 6.0 Absolute Lymphs (auto) 1.23 Nucleated RBC % 0 Sodium 140 Potassium 3.9 Chloride 109 H Carbon Dioxide 27.0 Anion Gap 4 L BUN 14 Creatinine 1.17 H Estim Creat Clear Calc 58.46 Est GFR (MDRD) Af Amer 60 Est GFR (MDRD) Non-Af 49 L BUN/Creatinine Ratio 12.0 Glucose 98 Calcium 9.6 Total Bilirubin 0.90 AST 21 ALT 25 Alkaline Phosphatase 78 Total Protein 6.7 Albumin 3.4 Globulin 3.3 Albumin/Globulin Ratio 1.0 Lipase 23 Urine Color Yellow Urine Clarity Clear Urine pH 6.0 Ur Specific Regent 1.015 Urine Protein 15 H Urine Glucose (UA) Normal Urine Ketones Negative Urine Occult Blood 150 H Urine Nitrite Negative Urine Bilirubin Negative Urine Urobilinogen Normal Ur Leukocyte Esterase 500 H Urine RBC 0 SEEN Urine WBC 10-25 SEEN Ur Squamous Epith Cells 5-10 SEEN Urine Bacteria 0 SEEN Urine Mucus 0 SEEN Radiography Diagnostic Testing: Clinical Impression(s) from Imaging Studies Abdomen/Pelvis CT 12/29/24 13:19 IMPRESSION: 3 mm calculus in the proximal portion of the left ureter causing mild degree of left hydronephrosis and proximal left hydroureter. Fatty infiltration of the liver. One or more dose reduction techniques were used (e.g., Automated exposure control, adjustment of the mA and/or kV according to patient size, use of iterative reconstruction technique). Reading Location: [place] [id number] Discharge Plan Triage Chief Complaint: Abd Pain ED Provider: Momo Hannon Dx/Rx/DC Orders Clinical Impression: Kidney stone on left side, Left flank pain Instructions: ED Kidney Stone with Pain Prescriptions: New hydrocodone-acetaminophen 5-300 mg tablet 1 tab PO Q4H PRN (Reason: pain) 3 Days Qty: 12 0RF No Action multivitamin 1 EACH tablet 1 ea PO acetaminophen 325 MG tablet 650 mg PO Q6H PRN (Reason: Pain Or Fever) atorvastatin 20 MG tablet 20 mg PO polyethylene glycol 3350 17 GM packet 17 gm PO DAILY sennosides-docusate sodium 1 EACH tablet 1 ea PO aspirin 81 MG tablet,delayed release (DR/EC) 81 mg PO omeprazole 20 MG capsule 20 mg PO DAILY cholecalciferol (vitamin D3) 5,000 UNIT capsule 5,000 unit PO calcium carbonate-vitamin D3 1 TABLET tablet 1 tab PO metoprolol succinate 25 MG capsule,sprinkle,ER 24hr 25 mg PO Primary Care Provider: Eusebio Rosas Referrals: José Miguel Cook MD [Med Staff - Active Staff] - 3-5 Days if not improving Eusebio Rosas MD [Primary Care Provider] - Activity Restrictions/Additional Instructions: Motrin and Vicodin as needed for pain. Plenty of fluids and rest. Return if intractable pain, fever, vomiting or feeling worse. Typically a stone the size, 3 mm, should pass on its own without any intervention. Strain your urine just to see that you pass the stone. Call and follow-up with urology as needed typically a stone the size you do not need to see a urologist. Print Language: Yi Disposition Disposition: Home, Self Care
[2024-12-29 13:54] LABS: Absolute Lymphocyte Count 1.23 X10^3/uL (0.83-4.51); Basophil# 0.03 X10^3/uL; Basophil% 0.4 % (0-1); Eosinophil# 0.12 X10^3/uL; Eosinophils% 1.5 % (0-5); Hematocrit 41.5 % (37-47); Hemoglobin 13.3 g/dL (12.0-15.0); Lymphocyte # 1.23 X10^3/ul (0.83-4.51); Lymphocyte % 15.5 % (19-41); Mean Corpuscular Hgb 28.7 pg (27.0-32.0); Mean Corpuscular Volume 89.6 fL (81-99); Mean Platelet Vol. 9.8 fl (6.2-12.0); Monocyte# 0.48 X10^3/uL; Monocyte% 6.1 % (0-10); NRBC Flagged by Analyzer 0 % (0-5); Neutrophil # 6.04 X10^3/uL (2.7-7.7); Neutrophil % 76.1 % (47-70); Platelet Count 223 K/mm3 (150-450); RBC Distribution Width CV 13.1 % (11.6-14.6); RBC Distribution Width SD 42.5 fl (35.1-43.9); Red Blood Count 4.63 M/mm3 (4.2-5.4); White Blood Count 7.9 K/mm3 (4.4-11.0)
[2024-12-29 14:10] LABS: Bacteria 0 SEEN /hpf (None Seen); Mucous, Urine 0 SEEN /hpf (<or=2+); Red Blood Cells-Urine 0 SEEN /hpf (0-5)
[2024-12-29 14:10] LABS: AST(SGOT) 21 U/L (15-37); Alanine Aminotransfer ALT/SGPT 25 U/L (13-56); Albumin, Serum 3.4 g/dL (3.2-5.0); Alkaline Phosphatase 78 U/L (45-117); Anion Gap 4 (5-15); BUN 14 mg/dL (7-18); Calcium,Total 9.6 mg/dL (8.5-10.1); Chloride 109 mmol/L (98-107); Creatinine, Serum 1.17 mg/dL (0.55-1.02); EST Glomerular Filtration Rate 49 mL/min (>60); Est Glom Filt Rate - Afr Amer 60 mL/min (>60); Estimated Creatinine Clearance 58.46 ml/min; Globulin 3.3 g/dL (2.2-4.2); Glucose 98 mg/dL (74-106); Lipase 23 U/L (13-75); Potassium 3.9 mmol/L (3.5-5.1); Protein, Total 6.7 g/dL (6.4-8.2); Sodium Level 140 mmol/L (136-145)
[2024-12-29 14:14] LABS: Color, Urine Yellow (Yellow); Glucose, Dipstick Normal (Normal); Ketone-Dipstick Negative (Negative); Leukocyte Esterase-Dipstick 500 /ul (Negative); Nitrite-Dipstick Negative (Negative); Occult Blood-Urine 150 /ul (Negative); Protein-Dipstick 15 mg/dl (Negative); Specific Gravity, Urine 1.015 (1.002-1.030); Urine Bilirubin Dipstick Negative (Negative); Urine Clarity Clear (Clear); Urine Urobilinogen Normal (Normal)
[2024-12-29 14:41] LABS: Squamous Epithelial Cells - UA 5-10 SEEN /hpf (5-10); White Blood Cells 10-25 SEEN /hpf (0-5)
[2024-12-29 15:00] VITALS: BP 130/74; PULSE 71; RESP 19
== END 2024-12-29 15:41 | disposition home or self-care (01) ==
PROVIDERS: Emergency Provider Emergency Medicine; PCP Family Medicine; Visit Provider Emergency Medicine
DX: N13.2 Hydronephrosis with renal and ureteral calculous obstruction (principal); I12.9 Hypertensive chronic kidney disease with stage 1 through stage 4 chronic kidney disease, or unspecified chronic kidney disease; N18.9 Chronic kidney disease, unspecified; E78.5 Hyperlipidemia, unspecified; Z79.82 Long term (current) use of aspirin; Z79.899 Other long term (current) drug therapy
CPT/HCPCS: 74177; 80053; 81001; 83690; 85025; 99282; Q9967; A4216